=== PATIENT | female | born 1970 | race Caucasian/White ===

== ENCOUNTER 2020-09-16 08:27 | Emergency (ER) | payer OTHER ==
[~2020-09-16] VITALS: Ht 165.1 cm; Wt 81.7 kg
[~2020-09-16 08:27] MED LIST: AMITRIPTYLINE H10 M3 PO; DELZICOL400 M1 PO; IMURAN 50MG TAB50 M1 PO; IRON325 PO; LIDODERM 5%1 PATC1 TRANSDERM; NAPROSYN500 MG PO; REMICADE 1100 MG/VIA PO; VOLTAREN GEL 1100 G2 TOP; ZANAFLEX4 MG PO
[2020-09-16 08:45] LABS: URINE BILIRUBIN NEGATIVE (Negative); URINE BLOOD 3+ (Negative); URINE CLARITY CLEAR; URINE COLOR YELLOW; URINE GLUCOSE-RANDOM NEGATIVE (Negative); URINE KETONES NEGATIVE (Negative); URINE LEUKOCYTES-REFLEX NEGATIVE (Negative); URINE NITRITE-REFLEX POSITIVE (Negative); URINE PROTEIN NEGATIVE (Negative); URINE SPECIFIC GRAVITY <= 1.005 (1.005-1.030); URINE UROBILINOGEN 0.2 E.U./dl (0.2-1.0)
[2020-09-16 08:53] LABS: ABSOLUTE BASOPHILS 0.1 thou/uL (0.0-0.2); ABSOLUTE EOSINOPHILS 0.1 thou/uL (0.0-0.7); ABSOLUTE LYMPHOCYTES 2.7 thou/uL (0.8-5.3); ABSOLUTE MONOCYTES 0.5 thou/uL (0.0-1.2); ABSOLUTE NEUTROPHILS 7.6 thou/uL (1.6-8.1); BASOPHILS 0.7 %; EOSINOPHILS 1.2 %; HEMATOCRIT 37.2 % (37.0-47.0); HEMOGLOBIN 12.7 gm/dL (12.0-15.0); LYMPHOCYTES 24.6 %; MCH 29.4 pg (26.0-34.0); MCV 86.6 fL (80.0-100.0); MONOCYTES 4.2 %; MPV 7.3 fl. (7.2-11.1); NUCLEATED RBCS 0 /100WBC; PLATELET COUNT* 318 thou/uL (150-400); POLYS 69.3 %; RDW-CV 13.5 % (10.5-14.5); WBC 10.9 thou/uL (4.0-11.0)
[2020-09-16 09:01] LABS: CALCIUM 8.9 mg/dL (8.5-10.1); CREATININE 0.8 mg/dL (0.6-1.3); POTASSIUM 3.5 mmol/L (3.5-5.1)
[2020-09-16 09:05] LABS: ALBUMIN 3.8 g/dL (3.4-5.0); TOTAL BILIRUBIN 0.5 mg/dL (<0.1-1.0); TOTAL PROTEIN 8.1 g/dL (6.4-8.2)
[2020-09-16 09:06] LABS: SQUAMOUS >10 Many /LPF (0-3)
[2020-09-16 09:07] LABS: BACTERIA-REFLEX 1-9 Few /HPF (None Seen); CASTS None Seen /LPF (None Seen); CRYSTALS None Seen /LPF (None Seen); MUCUS None Seen strn/LPF (None Seen); URINE RBC 0-2 Rare /HPF (0-2); URINE WBC-REFLEX 0-5 Rare /HPF (0-5)
[2020-09-16] MEDS ORDERED: NORCO 5-325 TA1 EAC2 PO (11:45)
[2020-09-16] MEDS ORDERED: KEFLEX500 M1 PO (11:45)
[2020-09-16] MEDS ORDERED: FLOMAX0.4 MG PO (11:45)
[2020-09-16] MEDS ORDERED: ZOFRAN ODT4 MG DISSOLVE (11:45)
[2020-09-16] MEDS ORDERED: IBUPROFEN 800800 M1 PO (11:45)
[2020-09-16 12:05] VITALS: BP 118/73
== END 2020-09-16 12:06 | disposition home or self-care (01) ==
LOC: M.ERS 08:27
PROVIDERS: Emergency Medicine Emergency Medical Services
DX: N20.0 Calculus of kidney (principal); N39.0 Urinary tract infection, site not specified; Z79.899 Other long term (current) drug therapy; Z88.2 Allergy status to sulfonamides

== ENCOUNTER → 2021-10-07 | Outpatient (CLI) | payer OTHER ==
[~2021-10-07] MED LIST changes: +FLOMAX0.4 MG PO; +IBUPROFEN 800800 M1 PO; +KEFLEX500 M1 PO; +NORCO 5-325 TA1 EAC2 PO; +ZOFRAN ODT4 MG DISSOLVE
== END ==
LOC: M.CT 08:00
PROVIDERS: ATTEND Nurse Practitioner Family
DX: Z13.6 Encounter for screening for cardiovascular disorders (principal)